=== PATIENT | female | born 1950 | race Caucasian/White ===

== ENCOUNTER 2017-02-15 16:47 | Emergency (ER) | payer MEDICARE, OTHER ==
[~2017-02-15] VITALS: Ht 152.4 cm; Wt 95.3 kg
[2017-02-15] MEDS ORDERED: ONDANSETRON ODT 4 MG PO ONE (17:30)
[2017-02-15] MEDS ORDERED: ACETAMINOPHEN 500 MG TABLET ONE (18:53)
[2017-02-15] MEDS ORDERED: ACETAMINOPHEN 500 MG TABLET PO ONE (19:00)
[2017-02-15 19:40] VITALS: BP 154/79
== END 2017-02-15 19:42 | disposition home or self-care (01) ==
LOC: ED 19:36
DX: S16.1XXA Strain of muscle, fascia and tendon at neck level, initial encounter (principal); E11.9 Type 2 diabetes mellitus without complications; V49.9XXA Car occupant (driver) (passenger) injured in unspecified traffic accident, initial encounter; Y93.89 Activity, other specified; Y92.89 Other specified places as the place of occurrence of the external cause; Y99.8 Other external cause status
CPT/HCPCS: 70450; 72125; 93005; 99284

== ENCOUNTER → 2017-03-13 | Outpatient (CLI) | payer MEDICARE, OTHER | END | disposition home or self-care (01) | LOC: CFH 09:45 | PROVIDERS: ATTEND Family Medicine | DX: S79.911A Unspecified injury of right hip, initial encounter (principal); M70.62 Trochanteric bursitis, left hip; M70.61 Trochanteric bursitis, right hip; M85.38 Osteitis condensans, other site; Y99.8 Other external cause status; Y92.89 Other specified places as the place of occurrence of the external cause; Y93.89 Activity, other specified; X58.XXXA Exposure to other specified factors, initial encounter ==

== ENCOUNTER → 2017-04-06 | Outpatient (CLI) | payer MEDICARE, OTHER | END | disposition home or self-care (01) | LOC: CFH 09:52 | PROVIDERS: ATTEND Family Medicine | DX: Z12.31 Encounter for screening mammogram for malignant neoplasm of breast (principal) | CPT/HCPCS: 77063; G0202 ==

== ENCOUNTER → 2017-10-04 | Outpatient (CLI) | payer MEDICARE, OTHER | END | disposition home or self-care (01) | LOC: CFH 10:30 | PROVIDERS: ATTEND Family Medicine | DX: Z13.820 Encounter for screening for osteoporosis (principal); M85.88 Other specified disorders of bone density and structure, other site; M81.0 Age-related osteoporosis without current pathological fracture | CPT/HCPCS: 77080 ==

== ENCOUNTER → 2019-03-31 | Outpatient (CLI) | payer MEDICARE, OTHER ==
[~2019-03-31] MED LIST: ASPI-496 PO; CHOL400T55 PO; DIPH25TA50 PO; FLUT9.9S NS; METF500T17 PO; MULT-658 PO; PANT40TA5 PO; SIMV40TA3 PO; ZOLP5TAB6 PO
[2019-03-31 17:23] LABS: CHOL/HDL RATIO 2.3
== END | disposition home or self-care (01) ==
LOC: LAB 11:05
PROVIDERS: ATTEND Family Medicine
DX: E11.9 Type 2 diabetes mellitus without complications (principal)
CPT/HCPCS: 36415; 80061; 82043; 82570

== ENCOUNTER → 2019-03-31 | Outpatient (CLI) | payer MEDICARE, OTHER ==
[2019-03-31 11:44] LABS: BASOPHILS # (AUTO) 0.02 x10^3/uL (0-0.1); BASOPHILS % (AUTO) 0 % (0-1); EOSINOPHILS # (AUTO) 0.08 x10^3/uL (0-0.4); EOSINOPHILS % (AUTO) 1 % (1-7); LYMPHOCYTES # (AUTO) 1.21 x10^3/uL (1-3.4); LYMPHOCYTES % (AUTO) 22 % (22-44); MD NO; MEAN CORPUSCULAR HEMOGLOBIN 31.8 pg (27.0-34.8); MEAN CORPUSCULAR HGB CONC 33.6 g/dL (32.4-35.8); MEAN CORPUSCULAR VOLUME 94.5 fL (80-100); MEAN PLATELET VOLUME 8.7 fL (7.4-10.4); MONOCYTES # (AUTO) 0.33 x10^3/uL (0.2-0.8); MONOCYTES % (AUTO) 6 % (2-9); NEUTROPHILS % (AUTO) 70 % (42-75); PLATELET COUNT 252 x10^3/uL (130-400); RED BLOOD COUNT 5.08 x10^6/uL (3.82-5.3)
[2019-03-31 12:01] LABS: CHLORIDE 109 mmol/L (98-107)
[2019-03-31 12:23] LABS: ALANINE AMINOTRANSFERASE 39 U/L (12-78); ALBUMIN 4.2 g/dL (3.4-5.0); ALKALINE PHOSPHATASE 79 U/L (45-117); ANION GAP 6 mmol/L (5-15); BILIRUBIN,TOTAL 1.7 mg/dL (0.2-1.0); CALCIUM 9.4 mg/dL (8.5-10.1); TOTAL PROTEIN 7.8 g/dL (6.4-8.2)
== END | disposition home or self-care (01) ==
LOC: STAR 09:59
PROVIDERS: ATTEND Obstetrics & Gynecology Female Pelvic Medicine and Reconstructive Surgery
DX: Z01.818 Encounter for other preprocedural examination (principal); N81.10 Cystocele, unspecified
CPT/HCPCS: 36415; 71046; 80053; 85025; 93005

== ENCOUNTER 2019-04-07 11:19 | Day surgery (SDC) | payer MEDICARE, OTHER ==
[~2019-04-07] VITALS: Ht 165.1 cm; Wt 92.8 kg
[2019-04-07] MEDS ORDERED: LACTATED RINGERS 1,000 ML IV SCH ×2 (11:46→16:04)
[2019-04-07 11:55] VITALS: BP 132/76
[2019-04-07] MEDS ORDERED: GABAPENTIN 300 MG CAPSULE PO ONE (12:00)
[2019-04-07] MEDS ORDERED: ACETAMINOPHEN 500 MG TABLET PO ONE (12:00)
[2019-04-07] MEDS ORDERED: FENTANYL PF 250 MCG/5ML ONE (12:09)
[2019-04-07] MEDS ORDERED: MIDAZOLAM 1 MG/ML, 2ML ONE (12:09)
[2019-04-07] MEDS ORDERED: CEFOTETAN PMX 2GM/50ML 50 ML ONE (12:11)
[2019-04-07] MEDS ORDERED: KETOROLAC 30 MG/1 ML ONE (12:11)
[2019-04-07] MEDS ORDERED: NEOSTIGMINE 1 MG/ML, 10ML ONE (12:13)
[2019-04-07] MEDS ORDERED: CEFAZOLIN 1,000 MG ONE (12:13)
[2019-04-07] MEDS ORDERED: ROCURONIUM 10MG/ML,5ML ONE (12:13)
[2019-04-07] MEDS ORDERED: DEXAMETHASONE 4 MG/ML, 1ML ONE (12:13)
[2019-04-07] MEDS ORDERED: PROPOFOL 10 MG/ML, 20ML ONE (12:13)
[2019-04-07] MEDS ORDERED: ONDANSETRON 2MG/ML, 2ML ONE (12:13)
[2019-04-07] MEDS ORDERED: GLYCOPYRROLATE 0.2MG/1ML, 5ML ONE (12:13)
[2019-04-07] MEDS ORDERED: FLUORESCEIN SODIUM 500 MG/5 ML ONE (14:32)
[2019-04-07] MEDS ORDERED: ESTROGENS CONJUGATED VAG CRM 0.625MG/1G, 30GM ONE (14:32)
[2019-04-07] MEDS ORDERED: EPINEPHRINE 1 MG/ML, 1ML ONE (14:32)
[2019-04-07] MEDS ORDERED: THROMBIN 5,000 UNIT VIAL TP ONE (14:32)
[2019-04-07] MEDS ORDERED: BUPIVACAINE/PF 0.25% ONE ×2 (14:32→15:13)
[2019-04-07] MEDS ORDERED: NEOMY/POLYMYXIN B GU IRR. 1 ML ONE (14:32)
[2019-04-07] MEDS ORDERED: PROMETHAZINE 25 MG/ML, 1ML IV PRN (15:00)
[2019-04-07] MEDS ORDERED: FENTANYL PF 100 MCG/2ML IV PRN (15:00)
[2019-04-07] MEDS ORDERED: MEPERIDINE/PF 25MG/0.5ML IVPush PRN (15:00)
[2019-04-07] MEDS ORDERED: ONDANSETRON ODT 8 MG PO PRN (15:00)
[2019-04-07] MEDS ORDERED: OXYcodone 5 MG/5 ML ORAL.SOL UDC PO PRN (15:00)
[2019-04-07] MEDS ORDERED: hydrALAzine 20 MG/ML, 1ML IV PRN (15:00)
[2019-04-07] MEDS ORDERED: PROMETHAZINE 25 MG SUPP PR PRN (15:00)
[2019-04-07] MEDS ORDERED: HYDROmorphone 2 MG/ML, 1ML IVPush PRN (15:00)
[2019-04-07] MEDS ORDERED: MORPHINE SULFATE 4 MG/ML, 1ML IVPush PRN (15:00)
[2019-04-07] MEDS ORDERED: PROMETHAZINE 25 MG/ML, 1ML IM PRN ×2 (15:00)
[2019-04-07] MEDS ORDERED: PROMETHAZINE 12.5 MG SUPP PR PRN (15:00)
[2019-04-07] MEDS ORDERED: ONDANSETRON 2MG/ML, 2ML IV PRN (15:00)
[2019-04-07] MEDS ORDERED: LABETALOL 5MG/ML, 20ML IV PRN (15:00)
[2019-04-07] MEDS ORDERED: HALOPERIDOL 5 MG/ML IV PRN (15:00)
[2019-04-07] MEDS ORDERED: HYDROcodone/APAP 7.5-325MG/15ML UDC ONE (16:20)
[2019-04-07] MEDS ORDERED: ONDANSETRON 2MG/ML, 2ML IVPush PRN (16:30)
[2019-04-07] MEDS ORDERED: HYDROcodone/APAP 5/325 TABLET PO PRN (16:30)
[2019-04-07] MEDS ORDERED: PROMETHAZINE 25 MG SUPP PR ONE (16:30)
== END 2019-04-07 18:55 | disposition home or self-care (01) ==
LOC: OUT 11:19
PROVIDERS: ATTEND Obstetrics & Gynecology Female Pelvic Medicine and Reconstructive Surgery
DX: N83.201 Unspecified ovarian cyst, right side (principal); N83.292 Other ovarian cyst, left side; I49.9 Cardiac arrhythmia, unspecified; E78.9 Disorder of lipoprotein metabolism, unspecified; Z79.899 Other long term (current) drug therapy; Z87.891 Personal history of nicotine dependence; Z87.440 Personal history of urinary (tract) infections; Z87.39 Personal history of other diseases of the musculoskeletal system and connective tissue; Z87.442 Personal history of urinary calculi; Z90.49 Acquired absence of other specified parts of digestive tract; Z90.710 Acquired absence of both cervix and uterus; Z98.890 Other specified postprocedural states; Z72.89 Other problems related to lifestyle
CPT/HCPCS: 57240; 57288; 82962; C1771; J0171; J0690; J1100; J1885; J2250; J2405; J2704; J2710; J3010; J3490; J7120